=== PATIENT | male | born 1960 | race Caucasian/White ===

== ENCOUNTER → 2020-11-03 08:49 | Outpatient (CLI) | payer OTHER, SELFPAY ==
[2020-11-03 09:46] LABS: COVID19 -Nasal RAPID Negative (Negative)
== END ==
PROVIDERS: Visit Provider Physician Assistant
DX: R09.81 Nasal congestion (principal); R05 Cough; Z20.822 Contact with and (suspected) exposure to COVID-19
CPT/HCPCS: 87635